=== PATIENT | male | born 1970 | race Caucasian/White ===

== ENCOUNTER 2017-02-04 16:04 | Emergency (ER) | payer MEDICARE ==
[~2017-02-04] VITALS: Ht 167.6 cm; Wt 67.9 kg
[~2017-02-04 16:04] MED LIST: METF10002 PO; SERT25TA PO; ZIPR60CA2 PO
[2017-02-04] MEDS ORDERED: SODIUM CHLORIDE 0.9% 1,000ML IVBOLUS ONE (16:30)
[2017-02-04] MEDS ORDERED: SITA50TA PO (16:36)
[2017-02-04] MEDS ORDERED: GLIP5TAB10 PO (16:36)
[2017-02-04] MEDS ORDERED: HYDR25CA PO (16:36)
[2017-02-04] MEDS ORDERED: GABA600T2 PO (16:36)
[2017-02-04 16:48] LABS: PH, VENOUS 7.445 pH (7.320-7.420)
[2017-02-04 16:55] LABS: HEMOGLOBIN 13.8 g/dL (13.7-18.0)
[2017-02-04 17:01] LABS: ASPARTATE AMINO TRANSFERASE 15 U/L (15-37); BLOOD UREA NITROGEN 12 mg/dL (7-18)
[2017-02-04 19:31] VITALS: BP 149/88
== END 2017-02-04 19:35 | disposition home or self-care (01) ==
LOC: ED 19:00
DX: E11.65 Type 2 diabetes mellitus with hyperglycemia (principal); F19.10 Other psychoactive substance abuse, uncomplicated; F10.10 Alcohol abuse, uncomplicated; F20.9 Schizophrenia, unspecified
CPT/HCPCS: 36415; 80053; 82010; 82803; 85025; 99284; J7030